=== PATIENT | female | born 1975 | race African-American/Black ===

== ENCOUNTER 2016-06-10 20:49 | Emergency (ER) | payer SELFPAY ==
[~2016-06-10] VITALS: Ht 167.6 cm; Wt 84.0 kg
[~2016-06-10 20:49] MED LIST: Z.0.NO CURRENT MEDS
[2016-06-10 20:51] VITALS: BP 221/110; PULSE 71; RESP 16; TEMP 97.9; O2SAT 99
[2016-06-10] MEDS ORDERED: cloNIDine HCL 0.1 MG TAB PO ONE (22:45)
--- NOTE | 2016-06-10 22:48 | PD ---
HPI Chief Complaint: Oral / Dental Pain or Problem Time Seen by Provider: 22:38 Travel History International Travel<30 days: No Contact w/Intl Traveler<30days: No Traveled to known affect area: No History of Present Illness HPI 41-year-old female presents for evaluation of dental pain. Symptoms started yesterday. It is a throbbing pain localized to the right mandibular first molar. Pain is worse with chewing. She has had pain so she with this tooth in the past. No fevers or chills. She is not using any medication over-the- counter for symptom relief. No other complaints. PFSH Past Medical History Hypertension: Yes (R ARM 140/89, L ARM 154/104) ?: Not LMP: 3 WKS AGO Past Surgical History Other Surgery: Yes (D&C) Social History Alcohol Use: No Tobacco Use: No Substance Use: No Allergies-Medications (Allergen,Severity, Reaction): Coded Allergies: Tylenol #3 (Verified Allergy, Severe, VOMITING, 06/10/16) Codeine (Verified Allergy, Intermediate, VOMITS, 06/10/16) Reported Meds & Prescriptions Reported Meds & Active Scripts Active Magic Mouthwash Adult Liq (Multi-Ingredient Mouthwash/Gargle) 120 Ml Susp 10 Ml SWISH-SPIT 5 TIMES A DAY Each 5 mL contains: Nystatin 200,000 units, Diphenhydramine 4.25 mg, Viscous Lidocaine 10 mg, Santos syrup 0.8 mL Penicillin V Potassium 500 Mg Tab 500 Mg PO Q8H 7 Days Review of Systems General / Constitutional: No: Fever, Chills HENT: Positive: Dental Difficulties Cardiovascular: No: Chest Pain or Discomfort, Palpitations Respiratory: No: Shortness of Breath Physical Exam Narrative GENERAL: Well-developed well-nourished female in no acute distress SKIN: Warm and dry. HEAD: Atraumatic. Normocephalic. EYES: Pupils equal and round. No scleral icterus. No injection or drainage. ENT: No nasal bleeding or discharge. Mucous membranes pink and moist. There is decay localized to the right mandibular second premolar and first molar. Tender to palpation. No gingival edema, no facial edema, no trismus, no sublingual edema NECK: Trachea midline. No JVD. No lymphadenopathy or submandibular edema CARDIOVASCULAR: Regular rate and rhythm. No murmur appreciated. RESPIRATORY: No accessory muscle use. Clear to auscultation. Breath sounds equal bilaterally. Data Data Last Documented VS Vital Signs Date Time Temp Pulse Resp B/P Pulse Ox O2 Delivery O2 Flow Rate FiO2 06/11/16 00:31 62 16 173/104 98 06/10/16 20:51 97.9 Orders Clonidine (Catapres) (06/10/16 22:45) MDM Medical Decision Making Medical Screen Exam Complete: Yes Emergency Medical Condition: Yes Medical Record Reviewed: Yes Differential Diagnosis Dental caries, pulpitis, pericoronitis, periodontal abscess Narrative Course 41-year-old female with dental pain for 2 days. Examination reveals dental caries. Her blood pressure is noted to be quite elevated in triage, repeat in her room is 195/107. She feels that it is secondary to the dental pain. She' ll be given a small dose of clonidine and this will be rechecked. I did recommend keeping a journal several times a week with her blood pressure readings and following up with a primary care physician likely to be started on antihypertensive medication. Repeat blood pressure is 173/104. Diagnosis Primary Impression: Dental caries Additional Instructions: Medication as prescribed. Follow-up with a dentist for definitive therapy. Return for any emergent medical conditions. Med/Other Pt SpecificInfo: Prescription(s) given Scripts Yuajtvwl-Rhsrptcqqskuyii-Rlhsjgjme Liq (Magic Mouthwash Adult Liq)120 Ml Susp10 Ml SWISH-SPIT 5 TIMES A DAY #120 ML Ref 0 Each 5 mL contains: Nystatin 200,000 units, Diphenhydramine 4.25 mg, Viscous Lidocaine 10 mg, Santos syrup 0.8 mL Prov:Tricia Lawler MD 06/10/16 Penicillin V Potassium 500 Mg Tak212 Mg PO Q8H 7 Days Ref 0 Prov:Tricia Lawler MD 06/10/16 Disposition: 01 DISCHARGE HOME Condition: Stable Adelso Wen Jun 10, 2016 22:48
[2016-06-10] MEDS ORDERED: PENI500T PO (23:48)
[2016-06-10] MEDS ORDERED: MAGICADU2 SWISH-SPIT (23:48)
[2016-06-11 00:31] VITALS: BP 173/104; PULSE 62; RESP 16; O2SAT 98
== END 2016-06-11 01:27 | disposition home or self-care (01) ==
LOC: NEPB 20:49
DX: K02.9 Dental caries, unspecified (principal); R03.0 Elevated blood-pressure reading, without diagnosis of hypertension
CPT/HCPCS: 99282